=== PATIENT | male | born 1995 | race Asian ===

== ENCOUNTER 2022-09-07 06:56 | Outpatient (CLI) | payer OTHER ==
--- NOTE | 2022-09-09 17:38 | MRI Report ---
PROCEDURE: LUMBAR SPINE WO INDICATIONS: LOW BACK PAIN TECHNIQUE: Noncontrast sagittal T1 spin echo and T2 fast echo, sagittal STIR, axial T1 and T2 fast spin echo thr ough the lumbar spine. In cases with scoliosis, additional coronal T2 fast spin echo may be performe d. COMPARISON: None. FINDINGS: Image quality: Excellent. Alignment and Curvature: There is normal bony alignment. Bone Marrow: Marrow is of normal overall signal. No acute vertebral body compression fractures. Spinal Cord: Conus medullaris terminates at the L1 level. Visualized cord demonstrates normal signa l and size. Paraspinous Soft Tissues: No paravertebral masses. T12-L1: Normal in appearance. L1-L2: Mild disc bulge. Mild facet ligamentum flavum hypertrophy. No canal stenosis. No foraminal stenosis. L2-L3: Broad-based disc bulge. Mild facet ligamentum flavum hypertrophy. Mild canal stenosis. No f oraminal stenosis. L3-L4: Moderate disc desiccation and height loss. Broad based disc bulge. There is a broad-based ce ntral posterior 1.0 x 0.5 x 0.9 cm disc bulge with resultant moderate canal stenosis. There is mild b ilateral neural foraminal stenosis. There is a small posterior focal high intensity zone. L4-L5: Mild disc desiccation and height loss. Broad based disc bulge. Moderate facet ligamentum fla vum hypertrophy. Moderate canal stenosis. No neural foraminal stenosis. There is a small posterior fo cindy high intensity zone. L5-S1: Moderate disc desiccation and height loss. Moderate facet ligamentum flavum hypertrophy. Mod erate canal stenosis. No foraminal stenosis. IMPRESSION: 1. Broad-based central disc bulge at L3-4 with resultant moderate canal stenosis. 2. 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 3. Moderate canal stenosis at L4-5. Reviewed by: Dalia Alexander MD on 09/09/2022 5:36 PM PDT Approved by: Dalia Alexander MD on 09/09/2022 5:36 PM PDT Station ID: [id number]
== END 2022-09-07 06:57 | disposition home or self-care (01) ==
LOC: DI 06:56
DX: M51.36 Other intervertebral disc degeneration, lumbar region (principal); M48.061 Spinal stenosis, lumbar region without neurogenic claudication; M47.816 Spondylosis without myelopathy or radiculopathy, lumbar region; M47.817 Spondylosis without myelopathy or radiculopathy, lumbosacral region; M51.37 Other intervertebral disc degeneration, lumbosacral region; M48.07 Spinal stenosis, lumbosacral region